=== PATIENT | female | born 1985 ===

== ENCOUNTER 2025-04-23 13:27 | Emergency (ER) | payer OTHER, SELFPAY ==
--- NOTE | ~2025-04-23 | US_ITS ---
CLINICAL HISTORY: eval for ovaria torsiom, sx likely Right side US female pelvis LMP:04/23/25. Technique: Ultrasound examination of the pelvis was performed with transabdominal and transvaginal technique for better visualization of the ovaries. Images include: color Doppler and spectral Doppler waveforms. Comparison: CT/SR - CT ABDOMEN PELVIS W IV CON - 04/23/25 18:55 EDT Findings: Anteverted uterus measuring 8.1 x 3.9 x 4.3cm without masses. Normal endometrial thickness of 0.8cm. The right ovary is not well delineated. The measured right ovary is normal in size, measuring 4.1 x 2.1 x 3.1cm, volume of 14.0mL. The suspected right ovary demonstrates heterogeneous echotexture. There is surrounding echogenic fat. There is normal arterial/venous vascularity. There is a heterogeneous lesion measuring 2.2 x 1.9 x 2.3 cm without vascularity. The left ovary is not visualized. No lesions in the left adnexa. Trace free fluid. Impression: Abnormal right adnexa. Ovarian torsion is not suspected. Question pelvic inflammatory disease with tubo-ovarian abscess. Please see the accompanying abdomen and pelvis CT report. This document has been electronically signed by: Franchesca Rangel MD on 04/23/2025 20:46:32
--- NOTE | ~2025-04-23 | CT_ITS ---
CLINICAL HISTORY: Right lower quadrant abdominal pain CT abdomen and pelvis with contrast Comparison: US - US PELVIC OVARIAN DOPPLER - 04/23/25 16:53 EDT Findings: No consolidation at the lung bases. Unremarkable gallbladder . Underdistended thick-walled bladder, likely reactive. There is stranding and a trace amount of fluid in the pelvis. In the right adnexa there is a low attenuating lesion with peripheral enhancement which is not well-defined measuring 2.9 x 3.0 x 2.6 cm (best appreciated on the coronal images, see series 5 images 38 through 51). There is a smaller low attenuating lesion with peripheral enhancement measuring 8 mm (series 5, image 43). In the left adnexa there is fluid attenuation lesion measuring 2.3 x 3.0 x 3.2 cm. The other solid organs are unremarkable. No bowel dilation. There is mild wall thickening of the small bowel and colon in the pelvis, particularly in the right lower quadrant. The appendix is seen in the region of inflammation and is prominent in size, measuring up to 8 mm (see series 3 images 61 through 64, series 6 images 50 through 57 and series 5 images 30 through 37). No free air. Normal vasculature. No lymphadenopathy. Trace ascites. No acute osseous abnormality. Impression: Pelvic inflammatory disease with tubo-ovarian abscesses is favored. Reactive inflammation of the right adnexa secondary to acute appendicitis is considered less likely. No free air. This document has been electronically signed by: Franchesca Rangel MD on 04/23/2025 19:51:06
--- NOTE | 2025-04-23 13:47 | ED_ITS ---
HPI - General Adult General Chief complaint: Abdominal Pain Stated complaint: Abd pain Time Seen by Provider: 04/23/25 14:04 Source: patient Mode of arrival: ambulatory Limitations: no limitations History of Present Illness ED Provider: HPI narrative: Audio old woman 39-year-old woman presenting with significant amount of pelvic pain started earlier today, coinciding with her 1st day of her period, she states she has had no shortness pain in the past but this is severe also indicating some nausea no vomiting has had no chest pain or shortness of breath has had no diarrhea, no fevers, no dysuria, had ovarian cysts in the past. Related Data Previous Rx's ?Medication ?Instructions ?Recorded doxycycline hyclate 100 mg capsule 100 mg PO BID 14 da ys #28 caps 04/23/25 hydrocodone 5 mg-acetaminophen 325 1 tab PO Q6H PRN pa in #10 tabs 04/23/25 mg tablet metronidazole 500 mg tablet 500 mg PO BID 14 days #28 tabs 04/23/25 ondansetron 4 mg disintegrating 4 mg PO Q8H PRN nausea and 04/23/25 tablet vomiting #20 tabs Allergies Allergy/AdvReac Type Severity Reaction Status Date / Time No Known Allergies Allergy Verified 04/23/25 13:50 Review of Systems 2 Constitutional: Constitutional: Reports as per [facility] Social History Social History Unable to assess alcohol history related to: Unknown Smoked in Last 30 Days: No Use of substances other than those prescribed or required for medical reasons: Unknown Advance Directives: No Advance Directives Information Provided: Yes Do you have a plan to hurt others: No Plan Patient : No Physical Exam ED Vital Signs: Vital Signs - 24 hr 04/23/25 13:48 04/23/25 19:13 Temperature 97.6 F 98.6 F Pulse Rate 91 81 Respiratory Rate 18 16 Blood Pressure 126/60 115/75 Pulse Oximetry 99 100 Oxygen Delivery Method Room Air Room Air BMI result Body Mass Index 24.5 Const Other: * Gen: ?Overall well-appearing patient * HEENT: PERRLA, EOMI, MMM, * Neck: Supple, no LAD * CV: RRR, no obvious murmurs appreciated * Resp: ?No wheezing rales rhonchi no stridor moving air well * Abd: ?Bowel sounds present, no right upper quadrant tenderness, some left right as suprapubic tenderness no rebound no rigidity * : No CMT, and there was no discharge of pus, swabs were obtained external genitalia normal * MSK: FROM, strength 5/5 all extremities * Skin: Warm, dry, intact, * Neuro: ?Alert and oriented x3, moving upper and lower extremities symmetrically, no obvious facial asymmetry noted Course Course Course Narrative: This is a rapid medical exam performed by Jacinda Bertrand NP: Additional HPI, ROS, PE not included below will be deferred to primary provider. Patient is a 39y/o F presenting to the ED with complaint of abdominal pain and nausea since yesterday which she relates to her period. Plan: Labs, UA Reevaluation(s) Reevaluation #1: 932pm Dr. Arellano states we have no inpatient beds okay to do 24 hours of doxy flagyl 14 days - outpatient [facility]YS[facility] did review images hard to say CT scan is not the best imaging patient looks much more comfortable Reevaluation #2: 952pm discussed case with JENNIFER quinn for TOA. will DC on oral abx and refer her to present at [facility] if worsening symptoms, I discussed this with her and she feels comfortable going home. Her exam is benign abdomen is soft, she is tolerating PO Medications Administered Discontinued Medications Generic Name Dose Route Start Last Admin Trade Name Toñitoq PRN Reason Stop Dose Admin Ampicillin Sodium/Sulbactam 100 mls @ 200 mls/hr 04/23/25 19:59 04/23/25 21:02 Sodium 3 gm/ Sodium Chloride IV 04/23/25 20:28 Infused ONCE ONE Infusion Doxycycline Hyclate 100 mg/ 250 mls @ 166.67 mls/hr 04/23/25 19:59 04/23/25 20:52 Sodium Chloride IV 04/23/25 21:28 166.67 mls/hr ONCE ONE Administration Iohexol 85 ml 04/23/25 18:59 04/23/25 18:59 Iohexol 350 Mg/Ml 100 Ml Infus..Btl IV 04/23/25 19:00 85 ml ONCE ONE Administration Ketorolac Tromethamine 15 mg 04/23/25 14:37 04/23/25 15:21 Ketorolac Tromethamine 15 Mg/Ml Vial IVPUSH 04/23/25 14:38 15 mg ONCE ONE Administration Morphine Sulfate 4 mg 04/23/25 14:37 04/23/25 15:21 Morphine Sulfate 4 Mg/Ml Cartridge IVPUSH 04/23/25 14:38 4 mg ONCE ONE Administration Protocol Morphine Sulfate 4 mg 04/23/25 17:45 04/23/25 17:59 Morphine Sulfate 4 Mg/Ml Cartridge IVPUSH 04/23/25 17:46 4 mg ONCE ONE Administration Protocol Morphine Sulfate 4 mg 04/23/25 20:06 04/23/25 20:26 Morphine Sulfate 4 Mg/Ml Cartridge IVPUSH 04/23/25 20:07 4 mg ONCE ONE Administration Protocol Ondansetron HCl 4 mg 04/23/25 14:37 04/23/25 15:22 Ondansetron Hcl 4 Mg/2 Ml Vial IVPUSH 04/23/25 14:38 4 mg ONCE ONE Administration Medical Decision Making Medical Decision Making [facility] Narrative: Presenting with abdominal pain and cramping in the 1st day of her she is in quite a bit of discomfort, the abdominal exam is nonspecific, I am going to start her on ultrasound to evaluate for ovarian pathology, Hodan she is not which rules out ectopic, depending on her symptom improvement, blood work, ultrasound may or may not proceed with CAT scan, we will continue evaluating for improvement in her symptoms. Has not had any prior surgeries, bowel sounds present do not suspect SBO. 16:30 patient re-evaluated, she is feeling better, still awaiting for ultrasound to be done 17:45 patient is still in some discomfort that she is feeling better, I looked at the images, not able to visualize left ovary, we will obtain CT abdomen and pelvis 0805: CT is suspicious for tubo-ovarian abscess, I discussed with the patient she states she has no vaginal discharge and no concern for STI, I will obtain swabs and perform a pelvic exam, I also send information to Dr. Peraza regarding these findings, patient is afebrile no leukocytosis but given those findings we will obtain blood cultures and initiate antibiotic treatment. 20:[address] Peraza, he told me he would have no issues keeping the patient here and place a consult note and follow.I also spoke with Dr. Monique, who told me he is going to see pt and consult as well.Dr. Monique evaluated pt at bed side, see his consult. pelvic without vag. 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 Peraza is to transfer, I am sign out this care to Dr. Arellano, patient has been updated of the upcoming process. Differential Diagnosis Differential Diagnoses: The differential diagnosis associated with the presentation includes (Appendicitis, ovarian torsion, hemorrhagic cyst, ectopic , SBO) 2022 Emergency Medicine Coding Guide from [employer] on 04/23/2025 All calculations should be rechecked by clinician prior to use RESULT SUMMARY: 5 Estimated Level of Service Problems: High (5) Risk: High (5) Data: Extensive (5) NARRATIVE MDM: This patient's problem complexity is High as patient: may have an acute or chronic illness/injury posing a threat to life or body function. This patient's risk is High due to: overall presentation requiring evaluation for a potentially High-risk process. This patient's data complexity is Extensive due to: -multiple tests ordered/reviewed -independent interpretation of imaging or EKG -discussion of management/testing with external professional INPUTS: Number and Complexity ?> 2 = 5: illness/injury w/life or body threat (b) Risk level ?> 4 = High Tests ordered ?> 3 = >= Tests results reviewed (excluding labs) ?> 3 = >= Prior external notes reviewed ?> 0 = 0 Assessment requiring and independent historian ?> 0 = No Independent interpretation of tests ?> 1 = Yes Discussed management/test interpretation w/external professional ?> 1 = Yes Admission/Observation Consideration of admission/observation: Escalation of care including admission/observation considered Consult Healthcare Provider Management of the patient was discussed with: State Highway Police Officer (Dr. Peraza, Dr. Monique) Lab Data MDM Lab Attestation statement: I reviewed the patient's lab results. 04/23/25 14:03 04/23/25 14:03 Labs: Lab Results 04/23/25 04/23/25 Range/Units 14:03 15:27 WBC 9.1 (4.8-10.8) X10*3/uL RBC 4.56 (4.20-5.50) X10*6/uL Hgb 12.2 (12.0-16.0) g/dl Hct 37.1 (37.0-47.0) % MCV 81.4 (80.0-98.0) fL MCH 26.8 L (27.0-33.0) pg MCHC 32.9 (31.0-35.0) g/dl RDW 14.5 (11.0-16.0) % Plt Count 260 (160-400) X10*3/uL MPV 10.5 (9.4-12.3) fL Immature Gran % (Auto) 0.3 (0.0-0.4) % Neut % (Auto) 76.7 H (45-73) % Lymph % (Auto) 16.6 L (20-40) % [place] % (Auto) 6.0 (2-11) % Eos % (Auto) 0.2 (0-4) % Baso % (Auto) 0.2 (0-2) % Lymph # (Auto) 1.5 (1.2-4.9) X10*3/uL [place] # (Auto) 0.5 (0.1-1.2) X10*3/uL Eos # (Auto) 0.0 (0.0-0.4) X10*3/uL Baso # (Auto) 0.0 (0.0-0.2) X10*3/uL Abs Immat Gran (auto) 0.03 (0.00-0.03) X10*3/uL Absolute Neuts (auto) 7.0 (2.0-8.3) x10*3/uL Absolute Nucleated RBC 0.000 (0.0-0.012) X10*3/uL Nucleated RBC % (auto) 0.0 (0.0-0.2) /100WBC Sodium 141 (135-145) mmol/L Potassium 3.9 (3.3-5.1) mmol/L Chloride 109 H (96-108) mmol/L Carbon Dioxide 23 (22-29) mmol/L Anion Gap 13 (12-20) BUN 10 (9-16) mg/dL Creatinine 0.58 (0.5-1.4) mg/dL Estim Creat Clear Calc 110.7 Estimated GFR > 60 Random Glucose 82 (60-115) mg/dL Calcium 9.3 (8.4-10.2) mg/dL Total Bilirubin 0.7 (0.0-1.0) mg/dL AST 24 (5-31) U/L ALT 14 (0-31) U/L Alkaline Phosphatase 60 (39-117) U/L Total Protein 7.9 (6.5-8.0) g/dL Albumin 4.5 (3.5-5.0) g/dL Lipase 18 (8-78) U/L Beta HCG, Quant < 2 mIU/mL Urine Color [place] A Urine Appearance Cloudy Urine pH 6.5 (5.0-9.0) Ur Specific [place] >= 1.030 H (1.005-1.025) Urine Protein 30 (1+) H (Neg-Trace) mg/dL Urine Glucose (UA) Negative (Negative) mg/dL Urine Ketones Trace (Negative) mg/dL Urine Blood Large (3+) H (Negative) Urine Nitrite Negative (Negative) Ur Leukocyte Esterase Trace H (Negative) Urine RBC >20 H (0-2) /HPF Urine WBC 6-10 H (0-5) /HPF Ur Squamous Epith Cells 3-5 (0-2) /HPF Urine Bacteria 2+ (None Seen) Hyaline Casts 0-2 (0-2) /LPF Critical Care Time Critical Care Time Critical Care Time: Yes Total Critical Care Time: 60 Attestation: Time is exclusive of separately billable procedures. Time includes: direct patient care, patient reassessment, coordination of patient care, interpretation of data (laboratory data, pulse oximetry, arterial blood gases and chest xrays), review of patient's medical records, medical consultation and documentation of patient care. Procedures excluded from critical care time: central intravenous line placement and electrocardiography. Discharge Plan Discharge Clinical Impression: Right tubo-ovarian abscess Patient Disposition: Home, Self-Care Instructions: Ovarian Abscess (ED) Additional Instructions: your labs were reassuring at this time will trial 14 days of antibiotics if you have fevers, worsening pain, vomiting, or any other concerns please present to [facility] at [facility] follow up with your family doctor / OBGYN as soon as possible On doxycycline, do not take pills immediately before going to bed and swallow pills with plenty of water. Avoid direct sunlight, iron, antacids, and Pepto Bismol. Call your provider if you develop new ringing in your ears, new problems hearing, dizziness, difficulty swallowing, rash, abdominal discomfort, nausea, or diarrhea.? On metronidazole, do NOT drink alcohol.? Call your provider if a metallic taste, loss of appetite, or nausea makes it difficult for you to eat.? Call your provider promptly if tingling develops in your hands or feet after you have taken a total of 30 grams or more of metronidazole. ? Prescriptions: New doxycycline hyclate 100 mg capsule 100 mg PO BID 14 Days Qty: 28 0RF metronidazole 500 mg tablet 500 mg PO BID 14 Days Qty: 28 0RF hydrocodone-acetaminophen 5-325 mg tablet 1 tab PO Q6H PRN (Reason: pain) Qty: 10 0RF Rx Instructions: partial fill okay; Partial Fill upon patient request. ondansetron 4 mg tablet,disintegrating 4 mg PO Q8H PRN (Reason: nausea and vomiting) Qty: 20 0RF Stand Alone Forms: Work/School Release Print Language: Guamanian
[2025-04-23 13:48] VITALS: BP 126/60; PULSE 91; RESP 18; TEMP 36.4; O2SAT 99; BMI 24.5
[2025-04-23 14:07] LABS: MANUAL DIFF FLAG NO
[2025-04-23 14:09] LABS: Hematocrit 37.1 % (37.0-47.0); Hemoglobin 12.2 g/dl (12.0-16.0); Imm Gran Abs Auto 0.03 X10*3/uL (0.00-0.03); Imm Gran Pct Auto 0.3 % (0.0-0.4); Lymphocytes Absolute Auto 1.5 X10*3/uL (1.2-4.9); Mean Corpuscular HGB Conc 32.9 g/dl (31.0-35.0); Mean Corpuscular Hemoglobin 26.8 pg (27.0-33.0); Mean Corpuscular Volume 81.4 fL (80.0-98.0); NRBC Abs Auto 0.000 X10*3/uL (0.0-0.012); NRBC Pct Auto 0.0 /100WBC (0.0-0.2); Platelet Count 260 X10*3/uL (160-400); Red Blood Count 4.56 X10*6/uL (4.20-5.50); White Blood Count 9.1 X10*3/uL (4.8-10.8)
[2025-04-23 14:38] LABS: Alanine Aminotransferase 14 U/L (0-31); Albumin Level 4.5 g/dL (3.5-5.0); Alkaline Phosphatase 60 U/L (39-117); Anion Gap 13 (12-20); Aspartate Amino Transferase 24 U/L (5-31); Blood Urea Nitrogen 10 mg/dL (9-16); Calcium 9.3 mg/dL (8.4-10.2); Carbon Dioxide 23 mmol/L (22-29); Chloride 109 mmol/L (96-108); Creatinine Clr Calc Pharmacy 110.7; Estimated Glomerular Filt Rate > 60; Lipase 18 U/L (8-78); Potassium 3.9 mmol/L (3.3-5.1); Sodium 141 mmol/L (135-145); Total Protein 7.9 g/dL (6.5-8.0)
[2025-04-23 15:35] LABS: Appearance Urine Cloudy; Glucose Urine UA Negative (Negative); PH 6.5 (5.0-9.0); Specific Gravity - Urine >= 1.030 (1.005-1.025); UMIC TRIGGER UACC YES
[2025-04-23 15:37] LABS: UACC Culture Trigger YES
--- OUTSIDE RECORDS SUMMARY | 2025-04-23 15:38 | XMS_ITS ---
Author Name [facility] Organization Unknown Care Team Organization Name Specialty Phone Email Start Date End Da te [facility] Dayron Hancock Primary Care 07/11/202204/03
--- OUTSIDE RECORDS SUMMARY | 2025-04-23 15:38 | XMS_ITS | Clinical Summary ---
Author Organization [facility] ity Address [address] [place] [address] Care Team Providers Care Woodworking Machine Setter Name Role Phone Dayron Hancock MD Primary Care Provider Allergies No known active allergies Medications albuterol HFA (Ventolin HFA) 90 mcg/actuation inhaler INHALE 2 PUFFS INTO THE LUNGS EVERY 4 HOURS NEEDED FOR COUGH OR WHEEZING. 01/25/2023 Active Active Problems Problem Noted Date Diagnosed Date Palpitation 11/08/2022 Abnormal EKG 11/06/2022 Mild intermittent asthma, uncomplicated 10/04/19 23 Surgical History Surgery Date Site/Laterality Comments OTHER SURGICAL HISTORY PROCEDURE: DENIES PREVIOUS SURGERY Medical History Medical History Date Comments Mild intermittent asthma, uncomplicated DX:Mild intermittent asthma, uncomplicated Family History Medical History Relation Name Comments Hypertension Father Diabetes Mother Hypertension Mother Breast cancer Neg Hx Colon cancer Neg Hx Ovarian cancer Neg Hx Pancreatic cancer Neg Hx Prostate cancer Neg Hx Uterine cancer Neg Hx Relation Name Status Comments Father Mother Social History Tobacco Use Types Packs/Day Years Used Date Smoking Tobacco: Never Smokeless Tobacco: Never Alcohol Use Standard Drinks/Week Comments Not Currently 0 (1 standard drink = 0.6 oz pur e alcohol) Comments Unknown Sex and Gender Information Value Date Recorded Sex Assigned at Not on file Legal Sex Female 7:34 PM EST Gender Identity Not on file Sexual Orientation Not on file Obstetrics History Last Filed Vital Signs Vital Sign Reading Time Taken Comments Blood Pressure 105/72 11/29/2023 2:44 PM EDT Pulse 63 11/29/2023 2:44 PM EDT Temperature - - Respiratory Rate - - Oxygen Saturation - - Inhaled Oxygen Concentration - - Weight 62.6 kg (138 lb) 11/29/2023 2:44 PM EDT Height 157.5 cm (5' 2 ) 10/05/2023 4:20 PM EST Body Mass Index 25.24 10/05/2023 4:20 PM EST Plan of Treatment Upcoming Encounters Date Type Department Care Team (Late st Contact Info) Description 04/28/2025 9:30 AM EDT Office Visit Adult Medicine [address] [phone] Iman Parker PA [address] [place] [address] 05/29/2025 11:00 AM EDT Office Visit Obstetrics and Gynecology - [address] [phone] Stephanie Villafuerte, JUNG [address] [place], [place] Health Maintenance Due Date Last Done Comments Breast Cancer Screening 1984 DTaP,Tdap,and Td Vaccines (1 - Tdap) 2003 Hepatitis B Vaccines (1 of 3 - 19+ 3-dose series) 2003 Pneumococcal Vaccine: Pediatrics (0 to 5 Years) and At-Risk Patients (6 to 49 Years) (1 of 2 - PCV) 2003 HIV Screening 10/29/2022 Hepatitis C Screening 10/29/2022 Social Influencers of Health Screening 10/29/2022 COVID-19 Vaccine (3 - 2023-2 5 season) 2024 02/03/2021, 01/06/2021 Depression Screening 09/03/2024 Influenza Vaccine (#1) 2025 Cholesterol Screening (Lipid Panel) 10/06/2027 10/06/2022 Cervical Cancer Screening: HPV 10/05/2028 10/05/2023 HIB Vaccines Aged Out No longer eligi ble based on patient's age to complete this topic HPV Vaccines Aged Out No longer eligi ble based on patient's age to complete this topic Hepatitis A Vaccines Aged Out No long er eligible based on patient's age to complete this topic IPV Vaccines Aged Out No longer eligi ble based on patient's age to complete this topic MMR Vaccines Aged Out No longer eligi ble based on patient's age to complete this topic Meningococcal ACWY Vaccine Aged Out N o longer eligible based on patient's age to complete this topic Meningococcal B Vaccine Aged Out No l onger eligible based on patient's age to complete this topic RSV Immunization Patients Under 20 months Aged Out No longer eligible b ased on patient's age to complete this topic Varicella Vaccines Aged Out No longer eligible based on patient's age to complete this topic Procedures Procedure Name Priority Date/Time Associated Diagnosis Comments HPV Routine 10/05/2023 LIPID PANEL Routine 10/06/2022 from Last 3 Months or Most Recently Relevant to Health Maintenance Results * Cervical Cancer Screening: HPV (10/05/2023) Pathologist [facility] Cervical Cancer Screening: HPV negative, abstracted Historical Provider HEALTH MAINTENANCE Final Result * Lipid panel (10/06/2022) Pathologist [facility] LDL/HDL Ratio 3 0 - 4 Triglycerides 71 0 - 150 mg/dL Cholesterol 175 0 - 200 mg/dL HDL 66 >=40 mg/dL LDL Cholesterol 95 0 - 100 mg/dL Blood Venous blood specimen / Unknown Historical Provider LAB BLOOD ORDERABLES Shellie l Result from Last 3 Months or Most Recently Relevant to Health Maintenance Insurance [facility] Care Teams Woodworking Machine Setter Relationship Specialty Start Date End Date Dayron Hancock MD [address] [place] [address] PCP - General Internal Medicine 12/26/21
[2025-04-23] MEDS: iohexoL 350 MG/ML 100 ML INFUS..BTL 85 ML IV (18:59)
[2025-04-23 19:13] VITALS: BP 115/75; PULSE 81; RESP 16; TEMP 37; O2SAT 100
--- NOTE | 2025-04-23 20:30 | PC.NURSE ---
blood cultures 1st set obtained from LUE and 2nd set obtained from RUE. pt medicated per mar with abx and morphine for pain. MD came to bedside to notify patient they will be doing a pelvic exam. pt verbalizes understanding and denies questions. Dr. Monique currently at bedside.
--- NOTE | 2025-04-23 20:53 | P.CONGS_ITS ---
History of Present Illness Consult details Consult date: 04/23/25 Narrative: [age] year old female referred to me for right lower quadrant pain. She says that this started last night. She says that this happened to her whenever she has periods for the past 2-3 months. She denies any dysuria. She admits to being sexually active. She denies GI complaints. She denies any diarrhea or constipation. She says that she has no other medical problems and is healthy otherwise. She denies any fever or chills. Review of Systems 2 Constitutional: Constitutional: Denies chills and Denies fever(s) Cardiovascular: Cardiovascular: Denies chest pain, Denies dyspnea and Denies dyspnea on exertion Respiratory: Respiratory: Denies cough, Denies dyspnea and Denies dyspnea on exertion Gastrointestinal: Gastrointestinal: Denies hematochezia and Denies change in bowel habits Genitourinary: Genitourinary: Denies hematuria Musculoskeletal: Musculoskeletal: Denies back pain and Denies limited range of motion Neurologic: Denies focal weakness and Denies convulsions Psychiatric: Psychiatric: Denies depression and Denies mood swings [facility] Past Medical History Medical History (Updated 04/24/25 @ 11:00 by López Monique MD) Tubo-ovarian abscess Social History Social History Unable to assess alcohol history related to: Unknown Meds Allergies Allergy/AdvReac Type Severity Reaction Status Date / Time No Known Allergies Allergy Verified 04/23/25 13:50 Active Medications: Current Medications Doxycycline Hyclate 100 mg/ (Sodium Chloride) 250 mls @ 166.67 mls/hr IV ONCE ONE Stop: 04/23/25 21:28 Physical Exam 2 Vital Signs: Vital Signs: Last Vital Signs Temp 98.6 F 04/23/25 19:13 Pulse 81 04/23/25 19:13 Resp 16 04/23/25 19:13 BP 115/75 04/23/25 19:13 Pulse Ox 100 04/23/25 19:13 O2 Del Method Room Air 04/23/25 19:13 BMI result Body Mass Index 24.5 Const: General: comfortable and no acute distress O rientation/consciousness: patient oriented x3 Neck: Neck: Yes no lymphadenopathy Resp: Auscultation: clear to auscultation bilaterally Cardio: Rhythm: regular rhythm GI: Palpation (GI): Soft to palpation, nontender and no guarding Neuro: General: patient oriented x3 Results Labs 04/23/25 14:03 04/23/25 14:03 Labs: Abnormal lab results 04/23/25 04/23/25 Range/Units 14:03 15:27 MCH 26.8 L (27.0-33.0) pg Neut % (Auto) 76.7 H (45-73) % Lymph % (Auto) 16.6 L (20-40) % Chloride 109 H (96-108) mmol/L Urine Color [place] A Ur Specific [place] >= 1.030 H (1.005-1.025) Urine Protein 30 (1+) H (Neg-Trace) mg/dL Urine Blood Large (3+) H (Negative) Ur Leukocyte Esterase Trace H (Negative) Urine RBC >20 H (0-2) /HPF Urine WBC 6-10 H (0-5) /HPF Short CBC 04/23/25 Range/Units 14:03 WBC 9.1 (4.8-10.8) X10*3/uL Hgb 12.2 (12.0-16.0) g/dl Hct 37.1 (37.0-47.0) % Plt Count 260 (160-400) X10*3/uL BMP 04/23/25 14:03 Sodium 141 Potassium 3.9 Chloride 109 H Carbon Dioxide 23 BUN 10 Creatinine 0.58 Calcium 9.3 Liver Function 04/23/25 Range/Units 14:03 Total Bilirubin 0.7 (0.0-1.0) mg/dL AST 24 (5-31) U/L ALT 14 (0-31) U/L Alkaline Phosphatase 60 (39-117) U/L Albumin 4.5 (3.5-5.0) g/dL Urine 04/23/25 Range/Units 15:27 Urine Color [place] A Urine Appearance Cloudy Urine pH 6.5 (5.0-9.0) Ur Specific [place] >= 1.030 H (1.005-1.025) Urine Protein 30 (1+) H (Neg-Trace) mg/dL Urine Glucose (UA) Negative (Negative) mg/dL All other labs normal. Imaging Abdomen CT scan report/results: report reviewed and image reviewed CT scan - pelvis: report reviewed and image reviewed US - pelvic: report reviewed and image reviewed Additional studies: Impression: Pelvic inflammatory disease with tubo-ovarian abscesses is favored. Reactive inflammation of the right adnexa secondary to acute appendicitis is considered less likely. No free air. This document has been electronically signed by: Franchesca Rangel MD on 04/23/2025 19:51:06 Assessment and Plan (1) Tubo-ovarian abscess: Status: Acute [age] year old female referred for right lower quadrant pain. I have reviewed her imaging studies and this is more suggestive of PID with a tubo- ovarian abscess. She does not have any GI complaints . Her abdominal exam is benign. She does have leukocyte esterase as well as RBCs in her urine as well Overall clinical findings suggest less of acute appendicitis as the etiology of her pain I would therefore defer to academic advisement director service at this time. Procedures Date of Service Date of Service: 04/24/25
--- NOTE | 2025-04-23 20:53 | P.CONOB_ITS ---
[employer] - CN: HPI Data of Consult Consult date: 04/23/25 Primary Care Provider: Unknown Physician Consult Narrative Narrative: I was consulted on Ren Hogan who is a 39 year old female presented to emergency room with pelvic pain that started earlier today, coinciding with her 1st day of her period, no other associated symptoms: Pelvic ultrasound showed the following: Anteverted uterus measuring 8.1 x 3.9 x 4.3cm without masses. Normal endometrial thickness of 0.8cm. The right ovary is not well delineated. The measured right ovary is normal in size, measuring 4.1 x 2.1 x 3.1cm, volume of 14.0mL. The suspected right ovary demonstrates heterogeneous echotexture. There is surrounding echogenic fat. There is normal arterial/venous vascularity. There is a heterogeneous lesion measuring 2.2 x 1.9 x 2.3 cm without vascularity. The left ovary is not visualized. No lesions in the left adnexa. Trace free fluid. Impression: Abnormal right adnexa. Ovarian torsion is not suspected. Question pelvic inflammatory disease with tubo-ovarian abscess. Please see the accompanying abdomen and pelvis CT report. CT scan of abdomen pelvis showed the following: Impression: Pelvic inflammatory disease with tubo-ovarian abscesses is favored. Reactive inflammation of the right adnexa secondary to acute appendicitis is considered less likely. No free air. HCG less than 2 CBC within normal cc:: CC: OB [facility] Social History Social History Unable to assess alcohol history related to: Unknown Meds Allergies Allergy/AdvReac Type Severity Reaction Status Date / Time No Known Allergies Allergy Verified 04/23/25 13:50 Active Medications: Current Medications Doxycycline Hyclate 100 mg/ (Sodium Chloride) 250 mls @ 166.67 mls/hr IV ONCE ONE Stop: 04/23/25 21:28 [employer] Physical Exam Vitals Vital signs: Temp Pulse Resp BP Pulse Ox O2 Del Method 98.6 F 81 16 115/75 100 Room Air 04/23/25 19:13 04/23/25 19:13 04/23/25 19:13 04/23/25 19:13 04/23/25 19:13 04/23/25 19:13 BMI result Body Mass Index 24.5 Additional Comments: Abdominal exam reported by Dr. Lopez as the following: Bowel sounds present, no right upper quadrant tenderness, some left right as suprapubic tenderness no rebound no rigidity [employer] - Results Labs 04/23/25 14:03 04/23/25 14:03 Labs: Short CBC 04/23/25 Range/Units 14:03 WBC 9.1 (4.8-10.8) X10*3/uL Hgb 12.2 (12.0-16.0) g/dl Hct 37.1 (37.0-47.0) % Plt Count 260 (160-400) X10*3/uL BMP 04/23/25 14:03 Sodium 141 Potassium 3.9 Chloride 109 H Carbon Dioxide 23 BUN 10 Creatinine 0.58 Calcium 9.3 Liver Function 04/23/25 Range/Units 14:03 Total Bilirubin 0.7 (0.0-1.0) mg/dL AST 24 (5-31) U/L ALT 14 (0-31) U/L Alkaline Phosphatase 60 (39-117) U/L Albumin 4.5 (3.5-5.0) g/dL Urine 04/23/25 Range/Units 15:27 Urine Color Oriental A Urine Appearance Cloudy Urine pH 6.5 (5.0-9.0) Ur Specific [place] >= 1.030 H (1.005-1.025) Urine Protein 30 (1+) H (Neg-Trace) mg/dL Urine Glucose (UA) Negative (Negative) mg/dL Assessment and Plan (1) Right tubo-ovarian abscess: Status: Inactive Plan Recommended to Dr Jaime the following: General surgery consult GC chlamydia, BV panel and Trichomonas to be taken. STD screen i to be ordered including HIV, hepatitis-B surface antigen, Hepatitis-C antibody and RPR. Recommend admission for IV antibiotics with Ceftriaxone 1 g Q 24, doxycycline 100 mg p.o. or IV q.12, metronidazole 500 mg IV or p.o. q.12 till clinical improvement for 48-72 hours, then discharge home on doxycycline 100 mg p.o. b.i.d. with Flagyl 500 mg p.o. b.i.d. for a total of 14 days, to be followed up as an outpatient within 2 weeks. In the event the patient does not progress or develop any of the following: Suspected sepsis , enlarging pelvic mass, new onset fever, persistent or worsening abdomino/pelvic tenderness after 48-72 hours of treatment with IV antibiotics, the patient might need minimally invasive abscess drainage through interventional radiology or surgical intervention. GC/chlamydia/Trichomonas need to be checked and the patient is to be treaterd accordingly if positive This note was generated with a voice recognition program. Some errors may have been overlooked during the review of this note. Sometimes these errors may affect the content or meaning of a given sentence. I spent a total of 20 minutes reviewing the chart, communicating to the emergency room provider and documenting in the medical record.
[2025-04-23 22:23] VITALS: BP 108/53; PULSE 87; RESP 16; TEMP 37; O2SAT 100
[2025-04-24 09:55] LABS: Bacterial Vaginosis PCR NEGATIVE (Negative); Candida Group PCR NOT DETECTED (Not Detect); Candida glab krusei PCR NOT DETECTED (Not Detect); Trichomonas vaginalis PCR NOT DETECTED (Not Detect)
[2025-04-24 10:23] LABS: CT PCR NOT DETECTED (Not Detect.); NG PCR NOT DETECTED (Not Detect.)
== END 2025-04-23 22:24 | disposition home or self-care (01) ==
PROVIDERS: Registered Nurse Emergency; Emergency Provider Emergency Medicine
DX: N70.93 Salpingitis and oophoritis, unspecified (principal); R10.2 Pelvic and perineal pain; R11.0 Nausea; R25.2 Cramp and spasm; Z79.899 Other long term (current) drug therapy
CPT/HCPCS: 36415; 74177; 76830; 76856; 80053; 81001; 81515; 83690; 84702; 85025; 87040; 87086; 87491; 87591; 93975; 96365; 96367; 96375; 96376; 99284; J0295; J1271; J1885; J2270; J2405; Q9967

== ENCOUNTER → 2025-04-23 15:30 | Outpatient (BNV) | payer OTHER, SELFPAY | PROVIDERS: Emergency Provider Emergency Medicine; Visit Provider Obstetrics & Gynecology | DX: N70.93 Salpingitis and oophoritis, unspecified (principal) | CPT/HCPCS: 99447 ==

== ENCOUNTER → 2025-04-23 15:30 | Outpatient (BNV) | payer OTHER, SELFPAY | PROVIDERS: Emergency Provider Emergency Medicine; Visit Provider Surgery | DX: N70.93 Salpingitis and oophoritis, unspecified (principal) | CPT/HCPCS: 99283 ==

== ENCOUNTER → 2025-04-23 17:45 | Outpatient (BNV) | payer OTHER, SELFPAY | PROVIDERS: Emergency Provider Emergency Medicine; Visit Provider Radiology Diagnostic Radiology | DX: R18.8 Other ascites (principal); R10.31 Right lower quadrant pain | CPT/HCPCS: 74177; 93975 ==